=== PATIENT | male | born 1940 | race Caucasian/White ===

== ENCOUNTER 2017-07-13 09:27 | Day surgery (SDC) | payer MEDICARE, BC ==
[2017-07-13] MEDS ORDERED: Lactated Ringers 1,000 ML IV SCH (10:30)
[2017-07-13] MEDS ORDERED: fentaNYL 100 MCG/2 ML SDV ONE (11:52)
[2017-07-13] MEDS ORDERED: ceFAZolin 2 GM in Premix Bag 1 BAG IV ONE (12:00)
--- NOTE | 2017-07-16 08:34 | OR ---
DATE OF PROCEDURE: 07/13/2017 PREOPERATIVE DIAGNOSES: 1. Quadriplegia. 2. Parkinson's disease. 3. Inability to take in adequate fluid. POSTOPERATIVE DIAGNOSIS: 1. Quadriplegia. 2. Parkinson's disease. 3. Inability to take in adequate fluid. PROCEDURE: Percutaneous endoscopic gastrostomy placement. SURGEON: Federico Childress MD. ANESTHESIA: IV anesthesia with monitored anesthesia care. INDICATIONS: This 77-year-old white male has severe Parkinson's disease and quadriplegia. He had a feeding tube placed elsewhere, it came out a week ago. He seemed to be doing better, so we tried to see if we could leave it out; however, he has failed as far as being able to get enough fluids in, and a request were made for placement of a percutaneous endoscopic gastrostomy tube. I counseled his for this, and she gave her informed consent to proceed. DESCRIPTION OF PROCEDURE: The patient was placed supine in the operating room. IV anesthesia was administered by the Anesthesia Service. His abdomen was prepped and draped in the usual sterile fashion. Time-out was held. The flexible video Olympus upper endoscope was passed through his mouth, down his esophagus, and into his stomach. The stomach was insufflated. Lights were turned down in the operating room, and the endoscopic light transilluminated through the anterior abdominal wall just inferior to the prior gastrostomy site. Lidocaine 1% plain was infiltrated at this point, where the light transilluminated through the anterior abdominal wall. A percutaneous endoscopic gastrostomy kit manufactured by [employer] was obtained. The needle with the catheter were introduced into the abdomen, and with the endoscope, the catheter was visualized, the needle was removed. The wire was then passed through the catheter into the stomach and was grasped with biopsy forceps. The endoscope was then removed bringing the wire with it. A 24-Korean gastrostomy tube was then attached to the wire, and a 1 cm incision was made at the wire exit site in the anterior abdominal wall. The wire was then pulled up through the anterior abdominal wall bringing the catheter down through the patient's mouth, esophagus, and into the stomach. The gastroscope was reintroduced back into the stomach. The gastrostomy tube was noted to be seated nicely against the anterior gastric wall with no excess tension. The gastroscope was then removed. The face plate was attached to the gastrostomy tube and passed down to the skin. The shut-off valve and then the access port were attached to the tube. This was all after the tube was cut to an appropriate length. The face plate was then attached to the skin with interrupted stitches of 3-0 nylon. A sterile dressing was applied. He tolerated the procedure well and was brought from the operating room in fair condition. Federico Childress MD /[id number]
== END 2017-07-13 13:45 ==
LOC: JP.SDS 09:27
PROVIDERS: ATTEND Surgery
DX: G82.50 Quadriplegia, unspecified (principal); G20 Parkinson's disease
CPT/HCPCS: 43246; J0690; J3010; J7120

== ENCOUNTER 2018-05-10 07:12 | Day surgery (SDC) | payer MEDICARE, MEDICAID ==
[2018-05-10] MEDS ORDERED: Ciprofloxacin in D5W 400 MG in Premix Bag 1 BAG IV ONE ×2 (08:00)
[2018-05-10] MEDS: Dextrose 5%-Lactated Ringers 1,000 ML IV SCH ×2 (08:49→17:54)
[2018-05-10] MEDS ORDERED: Propofol 200 MG/20 ML SDV ONE (08:58)
[2018-05-10] MEDS ORDERED: Midazolam 1 MG/ML 2 ML SDV ONE (08:58)
[2018-05-10] MEDS ORDERED: fentaNYL 100 MCG/2 ML SDV ONE (08:58)
[2018-05-10] MEDS ORDERED: Lidocaine 1% with EPINEPHrine 1:100,000 50 ML MDV ONE (10:54)
[2018-05-10] MEDS ORDERED: Bupivacaine 0.5% 30 ML SDV ONE (10:54)
[2018-05-10] MEDS ORDERED: Acetaminophen 325 MG Tab PO PRN (14:12)
[2018-05-10] MEDS: Carbidopa/Levodopa 25-100 MG Tab PO SCH (16:32)
[2018-05-10] MEDS ORDERED: Carbidopa/Levodopa 25-100 MG Tab PO SCH (21:00)
[2018-05-10] MEDS ORDERED: Carbidopa/Levodopa 10-100 MG Tab PO SCH (21:00)
[2018-05-11] MEDS ORDERED: Ciprofloxacin in D5W 400 MG in Premix Bag 1 BAG IV SCH ×2
[2018-05-11] MEDS: Dextrose 5%-Lactated Ringers 1,000 ML IV SCH (05:15)
[2018-05-11] MEDS ORDERED: Aspirin 81 MG Tab.EC PO SCH (09:00)
[2018-05-11] MEDS ORDERED: Polyethylene Glycol 3350 Powder 17 GM Packet GTUBE SCH (09:00)
[2018-05-11] MEDS ORDERED: Carbidopa/Levodopa 50-200 MG Tab.ER PO SCH (09:00)
[2018-05-11] MEDS: Carbidopa/Levodopa 25-100 MG Tab PO SCH (09:57)
--- NOTE | 2018-05-17 09:17 | DISCH ---
FINAL DIAGNOSES: 1. Chronic indwelling urethral catheter associated with recurring urinary tract infections. 2. Status post gastrostomy. 3. Quadriplegia secondary to C5-C6 fracture. 4. Dementia. 5. Parkinson's disease. 6. History of constipation. OPERATIVE PROCEDURES: This was done on 05/10/2018: 1. Placement of suprapubic cystostomy with ultrasound guidance. 2. Replacement of gastrostomy tube. SUMMARY: This is a 77-year-old presenting with problems with recurrent UTIs with an indwelling Pérez catheter. He has very advanced neurologic disability due to the above diagnoses, and recommendation was made to place a suprapubic cystostomy tube, which should avoid problems with penile irritation as well as reduce the incidence of infections, and this was placed at the time of admission. He also had a previous gastrostomy tube in place, which was due to be replaced, and that was replaced the second time. Postoperatively, no major problems were noted. The patient will be transferred back to the [facility] today, essentially resuming all of the previous care. Other than that, his urinary drainage will be via the suprapubic tube. It is notable that he will likely continue to have some bladder spasms causing some passage of urine via the urethra and penis, so again that would be an expected finding. Followup with Dr. Garcia will be p.r.n. for replacing the G-tube and/or cystostomy tube as felt necessary.
--- NOTE | 2018-05-20 13:09 | OR ---
DATE OF PROCEDURE: 05/10/2018 PREOPERATIVE DIAGNOSES: 1. Status gastrostomy, due for gastrostomy tube change. 2. Chronic indwelling urethral catheter with recurrent urinary tract infections and excoriation of the penis. POSTOPERATIVE DIAGNOSES: 1. Status gastrostomy, due for gastrostomy tube change. 2. Chronic indwelling urethral catheter with recurrent urinary tract infections and excoriation of the penis. OPERATIVE PROCEDURES: 1. Replacement of gastrostomy tube (27393). 2. Placement of suprapubic cystostomy tube (13333). ANESTHESIA: Local plus IV sedation. DOG BARBER: LO Cherry. INDICATION FOR PROCEDURE: This is a 77-year-old with quadriplegia, advanced dementia, and Parkinson disease, who is being maintained with a gastrostomy tube for hydration and also has a Pérez catheter placed due to a neurogenic bladder. The gastrostomy tube at this point is beginning to breakdown, and it needs to be replaced. The patient has also had problems with recurrent urinary tract infections as well as some excoriation of the penis. There is a chronic indwelling urethral catheter. The patient will have a suprapubic catheter placed as well. Potential risks of the procedure were reviewed with the patient's , and he wishes to proceed. DETAILS OF PROCEDURE: The patient was taken to the operating room and placed in the supine position. IV sedation was administered. Initially, the previous gastrostomy tube was removed and a new 24-Tamazight gastrostomy tube was then placed, the balloon inflated, and the tube was sewn up against the abdominal wall and placed to dependent drainage. The lower abdomen was then prepped and draped. At this point, the previous urinary catheter was then injected with 400 mL of saline. One could then see the bladder expanding with ultrasound in the suprapubic area. Then, the skin and underlying soft tissues were anesthetized with 1% lidocaine mixed with Marcaine. Over the skin, a guidewire was then passed through a needle that had been placed into the bladder. A small incision around the wire was then made and the introducer and peel-away catheter were then placed, and then a 12- Tamazight suprapubic catheter then placed through the peel-away catheter, which was then removed. The cystoscopy tube was placed. This was inflated with 8 mL of saline to pull the stomach against the urinary bladder to facilitate hemostasis and sutured there with a 2-0 nylon stitch. The tube was then placed to dependent drain. Ultrasound confirmed adequate placement within the area of bladder. Previous Pérez catheter was then removed, and the patient was taken to the recovery room in satisfactory condition. Hany Garcia MD /[id number]
== END 2018-05-11 11:21 ==
LOC: UNDOADMIN 07:12 → JP.SDS 07:12 → JP.SDSSCHI 07:12 → EDSTATUS 09:00 → JP.MS 13:15 → JP.SDSSCHI 14:15 → UNDODISIN 05-11 11:20 → JP.SDS 05-11 11:21
PROVIDERS: ATTEND Surgery
DX: T83.511A Infection and inflammatory reaction due to indwelling urethral catheter, initial encounter (principal); N39.0 Urinary tract infection, site not specified; S30.812A Abrasion of penis, initial encounter; K94.23 Gastrostomy malfunction; S12.500S Unspecified displaced fracture of sixth cervical vertebra, sequela; S12.400S Unspecified displaced fracture of fifth cervical vertebra, sequela; G82.50 Quadriplegia, unspecified; G20 Parkinson's disease; F02.80 Dementia in other diseases classified elsewhere, unspecified severity, without behavioral disturbance, psychotic disturbance, mood disturbance, and anxiety; G47.33 Obstructive sleep apnea (adult) (pediatric); F32.9 Major depressive disorder, single episode, unspecified; Z79.82 Long term (current) use of aspirin; Z79.899 Other long term (current) drug therapy; W19.XXXS Unspecified fall, sequela
CPT/HCPCS: 43762; 51040; 76998; A9270; J0744; J2250; J2704; J3010; J3490; J7042

== ENCOUNTER 2018-08-27 18:23 | Emergency (ER) | payer MEDICAID, MEDICARE ==
--- NOTE | 2018-08-27 20:06 | EDM.PDOC ---
ED HPI GENERAL MEDICAL PROBLEM - General Chief Complaint: Genitourinary Problem Stated Complaint: CATHETAR PROBLEM Time Seen by Provider: 08/27/18 19:18 Source of Information: Reports: Patient, Family, RN Notes Reviewed History Limitations: Reports: No Limitations - History of Present Illness INITIAL COMMENTS - FREE TEXT/NARRATIVE: 78-year-old gentleman presents emergency department today with complications to his suprapubic catheter it will not flush does not produce urine - Related Data Allergies Allergy/AdvReac Type Severity Reaction Status Date / Time No Known Allergies Allergy Verified 08/27/18 18:34 Home Meds: Home Meds Acetaminophen 650 mg PO TID 07/13/17 [History] Aspirin [Adult Low Dose Aspirin EC] 81 mg PO DAILY 07/13/17 [History] Bisacodyl [Dulcolax] 10 mg RECTAL DAILY PRN 07/13/17 [History] Cholecalciferol (Vitamin D3) [Children's Vitamin D3] 1,000 unit PO DAILY [History] Magnesium Hydroxide [Milk of Magnesia Concentrated] 30 ml PO DAILY PRN 07/13/17 [History] Nystatin [Nystatin Crm] 15 gm TOP BID 07/13/17 [History] Polyethylene Glycol 3350 [MiraLAX] 17 gm PO DAILY PRN 07/13/17 [History] Ranitidine HCl [Zantac 75] 75 mg PO DAILY 07/13/17 [History] Carbidopa/Levodopa [Carbidopa-Levodopa 25-100 Tab] 1.5 tab PO BID 05/10/18 [ History] Carbidopa/Levodopa [Carbidopa-Levodopa 25-100] 1 tab PO BEDTIME 05/10/18 [ History] Past Medical History HEENT History: Reports: Impaired Vision, Macular Degeneration Respiratory History: Reports: Sleep Apnea Gastrointestinal History: Reports: None Genitourinary History: Reports: Other (See Below) Other Genitourinary History: supra pubic cath Musculoskeletal History: Reports: Back Pain, Chronic, Fracture, Osteoarthritis Neurological History: Reports: Head Trauma, Parkinson's Psychiatric History: Reports: Dementia - Infectious Disease History Infectious Disease History: Reports: Chicken Pox, Measles - Past Surgical History HEENT Surgical History: Reports: Tonsillectomy Respiratory Surgical History: Reports: None GI Surgical History: Reports: Appendectomy, Colonoscopy, EGD, Hernia, Inguinal Male Surgical History: Reports: None Neurological Surgical History: Reports: Other (See Below) Other Neurological Surgeries/Procedures: fractured neck; repaired with metal plate a couple years ago, according to Musculoskeletal Surgical History: Reports: Other (See Below) Other Musculoskeletal Surgeries/Procedures:: Achilles tendon repair shahrzad Social & Family History - Family History Family Medical History: Noncontributory - Tobacco Use Smoking Status *Q: Never Smoker - Caffeine Use Caffeine Use: Reports: None - Recreational Drug Use Recreational Drug Use: No ED ROS GENERAL - Review of Systems Review Of Systems: See Below Constitutional: Reports: No Symptoms : Reports: Urinary Retention ED EXAM, RENAL/ - Physical Exam Exam: See Below Text/Narrative:: On initial inspection after removing 10 mL the catheter was still talks and not easily removed it was noted that approximately 12 mL of fluid was present in the syringe, next continued to withdraw fluid from the balloon for total of 55 mL after complete deflation of the balloon the catheter was easily removed and replaced Exam Limited By: No Limitations General Appearance: Alert, No Apparent Distress Course - Vital Signs Last Recorded V/S: Last Vital Signs Temp 97.5 F 08/27/18 18:47 Pulse 56 L 08/27/18 18:47 Resp 14 08/27/18 18:47 BP 118/73 08/27/18 18:47 Pulse Ox 98 08/27/18 18:47 - Orders/Labs/Meds Orders: Active Orders 24 hr Category Date Time Status Bladder Scan [RC] ASDIRECTED Care 08/27/18 18:42 Active Departure - Departure Time of Disposition: 20:05 Disposition: DC/[facility] to [facility] Condition: Poor Clinical Impression: Urinary catheter complication Qualifiers: Encounter type: initial encounter Qualified Code(s): T83.9XXA - Unspecified complication of genitourinary prosthetic device, implant and graft, initial encounter - Discharge Information Referrals: Evan Bright MD [Primary Care Provider] - Additional Instructions: Follow-up with primary care as needed - My Orders Last 24 Hours: My Active Orders 08/27/18 18:42 Bladder Scan [RC] ASDIRECTED - Assessment/Plan Last 24 Hours: My Active Orders 08/27/18 18:42 Bladder Scan [RC] ASDIRECTED Plan: Assessment Acuity = acute Site and laterality = catheter complications suprapubic Etiology = secondary to over inflated balloon 55 mL Manifestations = urinary retention Location of injury = Home Lab values = none Plan Catheter was replaced discharge back to residential follow-up with primary care as needed This note was dictated using [employer] voice recognition software please call with any questions on syntax or grammar.
== END 2018-08-27 20:57 ==
LOC: JP.ED 18:23
DX: T83.9XXA Unspecified complication of genitourinary prosthetic device, implant and graft, initial encounter (principal); R33.8 Other retention of urine; Z79.82 Long term (current) use of aspirin; Z79.899 Other long term (current) drug therapy
CPT/HCPCS: 51703; 51798; 99282; 99284

== ENCOUNTER 2019-02-21 14:42 | Emergency (ER) | payer MEDICARE ==
[2019-02-21] MEDS ORDERED: Sodium Chloride 0.9% 10 ML Syringe FLUSH PRN (15:22)
--- NOTE | 2019-02-21 15:28 | EDM.PDOC ---
ED HPI GENERAL MEDICAL PROBLEM - General Chief Complaint: Genitourinary Problem Stated Complaint: TROUBLE WITH CATTHER Time Seen by Provider: 02/21/19 14:45 Source of Information: Reports: Family, Residential Records History Limitations: Reports: Altered Mental Status, Language Barrier, Physical Impairment - History of Present Illness INITIAL COMMENTS - FREE TEXT/NARRATIVE: Maximino is a 78 year old male, hx of dementia, Parkinson's, cervical spinal fracture resulting in quadriplegia who [facility] ED [facility] for evaluation of suprapubic catheter. Patient's catheter was replaced by staff this morning, they had no urine returned so flushed with sterile water, water came out of urinary meatus. Patient arrives here with blood at urinary meatus. Patient is non verbal and unable to provide any history. On review of records, Dr. Garcia, surgeon placed suprapubic in May secondary to frequent UTI's from indwelling Pérez catheter. Per jail staff, patient has not had any fever or chills. He also has a PEG tube. Onset: Today - Related Data Allergies Allergy/AdvReac Type Severity Reaction Status Date / Time No Known Allergies Allergy Verified 02/21/19 15:16 Home Meds: Home Meds Acetaminophen 650 mg PO TID 07/13/17 [History] Aspirin [Adult Low Dose Aspirin EC] 81 mg PO DAILY 07/13/17 [History] Bisacodyl [Dulcolax] 10 mg RECTAL DAILY PRN 07/13/17 [History] Cholecalciferol (Vitamin D3) [Children's Vitamin D3] 1,000 unit PO DAILY [History] Magnesium Hydroxide [Milk of Magnesia Concentrated] 30 ml PO DAILY PRN 07/13/17 [History] Nystatin [Nystatin Crm] 15 gm TOP BID 07/13/17 [History] Polyethylene Glycol 3350 [MiraLAX] 17 gm PO DAILY PRN 07/13/17 [History] Carbidopa/Levodopa [Carbidopa-Levodopa 25-100 Tab] 1.5 tab PO BID 05/10/18 [ History] Carbidopa/Levodopa [Carbidopa-Levodopa 25-100] 1 tab PO BEDTIME 05/10/18 [ History] Past Medical History HEENT History: Reports: Impaired Vision, Macular Degeneration Respiratory History: Reports: Sleep Apnea Gastrointestinal History: Reports: None, Chronic Constipation Genitourinary History: Reports: Other (See Below) Other Genitourinary History: supra pubic cath Musculoskeletal History: Reports: Back Pain, Chronic, Fracture, Osteoarthritis Neurological History: Reports: Head Trauma, Parkinson's Psychiatric History: Reports: Dementia - Infectious Disease History Infectious Disease History: Reports: Chicken Pox, Measles - Past Surgical History Head Surgeries/Procedures: Reports: None HEENT Surgical History: Reports: Tonsillectomy Respiratory Surgical History: Reports: None GI Surgical History: Reports: Appendectomy, Colonoscopy, EGD, Hernia, Inguinal Male Surgical History: Reports: None Neurological Surgical History: Reports: Other (See Below) Other Neurological Surgeries/Procedures: fractured neck; repaired with metal plate a couple years ago, according to Musculoskeletal Surgical History: Reports: Other (See Below) Other Musculoskeletal Surgeries/Procedures:: Achilles tendon repair shahrzad Social & Family History - Family History Family Medical History: Noncontributory - Caffeine Use Caffeine Use: Reports: None ED ROS GENERAL - Review of Systems Review Of Systems: ROS reveals no pertinent complaints other than HPI. ED EXAM, RENAL/ - Physical Exam Exam: See Below Exam Limited By: Other (Non verbal) Head: Atraumatic Respiratory/Chest: No Respiratory Distress Cardiovascular: Bradycardia GI/Abdominal: Soft, Other (PEG tube present in left abdomen, suprapubic catheter in place with no current signs of infection at site) (Male) Exam: Urethral Discharge (bloody discharge from urinary meatus) Neurological: Other (quadrapalegic with contracted upper extremities) Skin Exam: Warm Lymphatic: No Adenopathy Course - Vital Signs Last Recorded V/S: Last Vital Signs Temp 35.5 C 02/21/19 15:17 Pulse 54 L 02/21/19 16:13 Resp 17 02/21/19 15:17 BP 150/57 H 02/21/19 16:13 Pulse Ox 87 L 02/21/19 15:17 Maximino is a 78 year old male, presents to the ED today from jail for supra pubic catheter related complications. Please refer to HPI and focused exam. Patient non-verbal, on initial exam, no drainage from Suprapubic, sterile water flush does demonstrate water coming from penis followed by adalberto hematuria, suprapubic catheter balloon deflated, catheter pulled back, much more catheter was pulled back than anticipated. Balloon reinflated and then catheter was draining urine, steady ooze of blood from urinary meatus. Concern for urethral rupture vs. bladder injury. CT scan of abdomen and pelvis with no free fluid and suprapubic remained draining non bloody urine, discussed case with Dr. Tipton urologist at [facility] who thinks somehow when suprapubic catheter was placed this morning it migrated into the urethra and when balloon was inflated the urethra likely tore. He recommended an 18 montserratian Pérez cather to be placed and irrigated for tamponade and left in until Sunday when it can be removed, allowing time for urethra to heal. CBC and INR here today reassuring, patient not on blood thinners. 18 Polish catheter placed without difficulty, irrigated well, clots removed via irrigation and catheter capped. I discussed all of the above with patient's and jail staff with me updated by nursing staff here. Patient tolerated well and was discharged in stable condition. - Orders/Labs/Meds Orders: Active Orders 24 hr Category Date Time Status Peripheral IV Care [RC] . DIRECTED Care 02/21/19 15:22 Active Iopamidol [Isovue-300 (61%)] Med 02/21/19 15:45 Active 110 ml IV . DIRECTED Sodium Chloride 0.9% [Normal Saline] 1,000 ml Med 02/21/19 15:30 Active IV ASDIRECTED Sodium Chloride 0.9% [Saline Flush] Med 02/21/19 15:22 Active 10 ml FLUSH ASDIRECTED PRN Sodium Chloride 0.9% [Saline Flush] Med 02/21/19 15:34 Active 10 ml FLUSH ONETIME PRN Peripheral IV Insertion Adult [OM.PC] Routine Oth 02/21/19 15:22 Ordered Medication Orders Sodium Chloride (Normal Saline) 1,000 mls @ 150 mls/hr IV ASDIRECTED [facility] Last Admin: 02/21/19 16:12 Dose: 150 mls/hr Iopamidol (Isovue-300 (61%)) 110 ml IV . DIRECTED [facility] Last Admin: 02/21/19 16:16 Dose: 110 ml Sodium Chloride (Saline Flush) 10 ml FLUSH ASDIRECTED PRN PRN Reason: Keep Vein Open Sodium Chloride (Saline Flush) 10 ml FLUSH ONETIME PRN PRN Reason: PER RADIOLOGY PROTOCOL Last Admin: 02/21/19 16:19 Dose: 10 ml Admin: 10/18/19 15:37 Dose: 10 ml Labs: Laboratory Tests 02/21/19 02/21/19 02/21/19 Range/Units 15:21 15:37 15:37 WBC 9.0 (4.5-11.0) K/uL RBC 3.96 L (4.30-5.90) M/uL Hgb 13.6 (12.0-15.0) g/dL Hct 40.7 (40.0-54.0) % MCV 103 H (80-98) fL MCH 34 H (27-31) pg MCHC 33 (32-36) % Plt Count 262 (150-400) K/uL Neut % (Auto) 66 (36-66) % Lymph % (Auto) 21 L (24-44) % [place] % (Auto) 10 H (2-6) % Eos % (Auto) 3 (2-4) % Baso % (Auto) 0 (0-1) % PT 10.9 (9.5-12.0) sec INR 1.01 (0.80-1.20) Sodium 139 L (140-148) mmol/L Potassium 5.3 H (3.6-5.2) mmol/L Chloride 104 (100-108) mmol/L Carbon Dioxide 26 (21-32) mmol/L Anion Gap 14.3 H (5.0-14.0) mmol/L BUN 28 H (7-18) mg/dL Creatinine 0.7 L (0.8-1.3) mg/dL Est Cr Clr Drug Dosing 88.38 mL/min Estimated GFR (MDRD) > 60 (>60) Glucose 90 (74-106) mg/dL Calcium 8.7 (8.5-10.1) mg/dL Meds: Medications Generic Name Dose Route Start Last Admin Trade Name Freq PRN Reason Stop Dose Admin Sodium Chloride 1,000 mls @ 150 mls/hr 02/21/19 15:30 02/21/19 16:12 Normal Saline IV 150 mls/hr ASDIRECTED NATALY Administration Iopamidol 110 ml 02/21/19 15:45 02/21/19 16:16 Isovue-300 (61%) IV 110 ml . DIRECTED NATALY Administration Sodium Chloride 10 ml 02/21/19 15:22 Saline Flush FLUSH ASDIRECTED PRN Keep Vein Open Sodium Chloride 10 ml 02/21/19 15:34 02/21/19 16:19 Saline Flush FLUSH 10 ml ONETIME PRN Administration PER RADIOLOGY PROTOCOL Discontinued Medications Generic Name Dose Route Start Last Admin Trade Name Evelyne PRN Reason Stop Dose Admin Sodium Chloride 73 mls @ 3 mls/sec 02/21/19 15:34 02/21/19 16:17 Normal Saline IV 02/21/19 15:35 3 mls/sec ONETIME ONE Administration Departure - Departure Time of Disposition: 18:30 Disposition: DC/Tfer to [facility] 03 Condition: Good Clinical Impression: Tear of urethra Qualifiers: Encounter type: initial encounter Qualified Code(s): S37.33XA - Laceration of urethra, initial encounter - Discharge Information Referrals: Jose Martin Dillard MD [Primary Care Provider] - Forms: ED Department Discharge Additional Instructions: Keep Pérez Catheter in place until Sunday at which time it can be removed. Irrigate with sterile water/saline as needed if suprapubic is not draining. Urology felt that this should heal enough to remove the catheter on Sunday. The catheter in patient's penis is simply to tamponade off any bleeding from urethral tear, it is not needed for draining as long as suprapubic is functioning. When replacing suprapubic in the future, take caution as to not insert catheter too far to avoid any repeat urethral trauma. If there is any concerns or worsening symptoms over the weekend with regard to ongoing urethral bleeding despite catheter placement I would recommend transfer to a facility that has inpatient Urology such as [facility]. I spoke with a Dr. Givens there. - My Orders Last 24 Hours: My Active Orders 02/21/19 15:22 Peripheral IV Care [RC] . DIRECTED Sodium Chloride 0.9% [Saline Flush] 10 ml FLUSH ASDIRECTED PRN Peripheral IV Insertion Adult [OM.PC] Routine 02/21/19 15:30 Sodium Chloride 0.9% [Normal Saline] 1,000 ml IV ASDIRECTED 02/21/19 15:34 Sodium Chloride 0.9% [Saline Flush] 10 ml FLUSH ONETIME PRN 02/21/19 15:45 Iopamidol [Isovue-300 (61%)] 110 ml IV . DIRECTED - Assessment/Plan Last 24 Hours: My Active Orders 02/21/19 15:22 Peripheral IV Care [RC] . DIRECTED Sodium Chloride 0.9% [Saline Flush] 10 ml FLUSH ASDIRECTED PRN Peripheral IV Insertion Adult [OM.PC] Routine 02/21/19 15:30 Sodium Chloride 0.9% [Normal Saline] 1,000 ml IV ASDIRECTED 02/21/19 15:34 Sodium Chloride 0.9% [Saline Flush] 10 ml FLUSH ONETIME PRN 02/21/19 15:45 Iopamidol [Isovue-300 (61%)] 110 ml IV . DIRECTED
[2019-02-21] MEDS ORDERED: Sodium Chloride 0.9% 1,000 ML IV SCH (15:30)
[2019-02-21] MEDS: Sodium Chloride 0.9% 10 ML Syringe FLUSH PRN ×2 (15:37→16:19)
[2019-02-21] MEDS ORDERED: Iopamidol 612 MG/ML 150 ML Bottle IV SCH (15:45)
--- NOTE | 2019-02-21 17:01 | CRLCT ---
INDICATION: Suprapubic catheter replacement this morning with bleeding. TECHNIQUE: CT abdomen and pelvis acquired with IV contrast. 110 cc Isovue 300 COMPARISON: None FINDINGS: Lower chest: Unremarkable. Liver: Unremarkable. Spleen: Unremarkable. Pancreas: Unremarkable. Gallbladder and bile ducts: Unremarkable. Kidneys/urinary bladder: 3.6 centimeter x 3.4 centimeter cyst mid zone left kidney with thin septations. 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 No further workup necessary. 6 millimeter nonobstructing calculus in right renal pelvis. No hydronephrosis. Punctate nonobstructing calculus mid zone right kidney. A percutaneous suprapubic Pérez catheter balloon is identified within a collapsed urinary bladder. No evidence of perivascular fluid to definitively suggest perforation. No evidence for perivesicular hematoma. Adrenal glands: Unremarkable. GI tract: Diffuse colonic fecal retention. Appendix is normal. Vascular structures: Unremarkable. Lymph nodes: Unremarkable. Miscellaneous: Unremarkable. No free air or significant free fluid. Pelvic Organs: Degenerative changes involving both hip joints. Moderate to severe compression deformity L1 vertebral body. Multilevel degenerative changes involving the thoracolumbar spine. Bones: Unremarkable for age. IMPRESSION: Suprapubic catheter balloon within a decompressed urinary bladder. No evidence of good perivesicular fluid to definitively suggest perforation. Cystogram or CT cystogram recommended if clinically warranted to definitively evaluate for perforation. No evidence of perivesicular hematoma or hematoma within the ventral abdominal wall. 6 millimeter nonobstructing calculus right renal pelvis. No hydronephrosis. Punctate nonobstructing calculi mid zone right kidney. 3.6 centimeter x 3.4 centimeter cyst mid zone left kidney with thin septation. 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 Dictated by Yon Benito MD @ 02/21/2019 4:59:14 PM Please note that all CT scans at this facility use dose modulation, iterative reconstruction, and/or weight-based dosing when appropriate to reduce radiation dose to as low as reasonably achievable. Dictated by: Yon Benito MD @ 02/21/2019 16:59:31 (Electronically Signed)
== END 2019-02-21 18:38 ==
LOC: JP.ED 14:42
DX: S37.33XA Laceration of urethra, initial encounter (principal); G20 Parkinson's disease; Z79.82 Long term (current) use of aspirin; X58.XXXA Exposure to other specified factors, initial encounter
CPT/HCPCS: 36415; 51702; 74177; 80048; 85025; 85610; 96360; 96361; 99284; J7030

== ENCOUNTER 2019-03-02 22:23 | Emergency (ER) | payer MEDICARE ==
[2019-03-03] MEDS: Iopamidol 612 MG/ML 100 ML Bottle IV STA (00:19)
--- NOTE | 2019-03-03 00:27 | CRLCR ---
HISTORY: Generalized pain. COMPARISON: None available FINDINGS: A portable erect AP view of the chest was obtained at 23 47 hours. The lungs are clear despite shallow inspiration. No focal or diffuse infiltrates are present. The heart is mildly enlarged. The mediastinum is otherwise normal in appearance. There are changes of anterior and posterior inferior cervical fusion. The osseous structures elsewhere are normal in appearance for the patient`s age. IMPRESSION: Mild cardiomegaly. Otherwise no active disease seen in the chest. Dictated by Kalyan Reyes MD @ Mar 03 2019 12:23AM Signed by Dr. Kalyan Reyes @ Mar 03 2019 12:24AM
[2019-03-03] MEDS: cefTRIAXone 1 GM in Sodium Chloride 0.9% 50 ML IV ONE (00:46)
[2019-03-03] MEDS: Sodium Chloride 0.9% 1,000 ML IV STA (01:06)
--- NOTE | 2019-03-03 01:18 | CRLCT ---
INDICATION: Abdominal pain. End-stage Parkinson`s, very retracted. COMPARISON: 02/21/2019 TECHNIQUE: CT examination of the abdomen and pelvis was performed with the uneventful intravenous administration of 100 cc of Isovue-300 while 3 mm thick axial sections were obtained from the lung bases through the pubic symphysis. Oral contrast was not administered. Please note that all CT scans at this facility use dose modulation, iterative reconstruction, and/or weight-based dosing when appropriate to reduce radiation dose to as low as reasonably achievable. FINDINGS: In the abdomen, the liver, spleen, pancreas, and adrenals are normal in appearance. Again seen is the nonobstructive calculus in the right renal pelvis measuring 7 millimeters in diameter. Again seen is the tiny nonobstructing calculus in the upper pole of the right kidney. The septated cyst projecting medially from the interpolar left kidney measuring 3.3 centimeters in diameter is unchanged. The gallbladder is normal in appearance. The abdominal aorta is normal in caliber with no sign of dilatation. There is no sign of retroperitoneal mass or adenopathy. The stomach, loops of small bowel, and colon in the abdomen are normal in appearance. In the pelvis, the appendix is nonvisualized, but there is no sign of an inflammatory process in the area of the appendix. The loops of small bowel and colon in the pelvis are normal in appearance. The prostate remains mildly enlarged and is otherwise normal in appearance. Again seen is a suprapubic catheter in satisfactory position in the collapsed urinary bladder. There is no sign of pelvic or inguinal mass or adenopathy. There is mild atelectasis in the posterior lung bases, similar to the previous study. There is no change in the moderate T12 compression fracture. There is no change in the moderate left superior L2 endplate fracture. There is no change in minimal anterior subluxation of L4 on L5. There is no change in moderate L3-4 and L5-S1 disc degenerative disease. Again seen is moderate anterior angulation of the last sacral segment and the coccygeal segments, consistent with an old, healed distal sacral fracture. Again seen is mild scoliosis of the lumbar spine convex towards the left. IMPRESSION: Nothing seen that would explain the patient`s abdominal pain. CT of the abdomen shows no change in a nonobstructive 7 millimeter calculus in the left renal pelvis and a nonobstructive tiny calculus in the upper pole of the right kidney. No change in septated 3.3 centimeter cyst in the interpolar left kidney. CT of the pelvis shows no change in satisfactory positioning of a suprapubic catheter within the collapsed urinary bladder. Stable moderate T12 compression fracture and superior left L2 vertebral body endplate fracture. Please note that all CT scans at this facility use dose modulation, iterative reconstruction, and/or weight-based dosing when appropriate to reduce radiation dose to as low as reasonably achievable. Dictated by Kalyan Reyes MD @ Mar 03 2019 1:05AM Signed by Dr. Kalyan Reyes @ Mar 03 2019 1:16AM
--- NOTE | 2019-03-03 01:41 | EDM.PDOC ---
ED HPI GENERAL MEDICAL PROBLEM - General Chief Complaint: Genitourinary Problem Stated Complaint: BLEEDING Time Seen by Provider: 03/03/19 01:36 Source of Information: Reports: Patient History Limitations: Reports: Altered Mental Status, Other - History of Present Illness INITIAL COMMENTS - FREE TEXT/NARRATIVE: + 78 years old male patient presented with a chief complaint of bleeding from suprapubic catheter and tip of his penis. He was noted today. History collected halfway, from his at the bedside. stated that he had injury to his urethra few days ago Sunday where placing his catheter. No report of any nausea or vomiting or fever. EMS did not notice any blood and his urine looks clear in a back. Also no bleeding was noted here in the ER urine is very clear. Patient denies any headache or visual changes. Denies any neck pain or back pain. Denies any chest pain or shortness breath. Denies any cough or fever. Denies any abdominal pain diarrhea or constipation. No urinary symptom. His stated that he seems to be at his baseline. - Related Data Allergies Allergy/AdvReac Type Severity Reaction Status Date / Time No Known Allergies Allergy Verified 03/02/19 22:41 Home Meds: Home Meds Acetaminophen 650 mg PO TID 07/13/17 [History] Aspirin [Adult Low Dose Aspirin EC] 81 mg PO DAILY 07/13/17 [History] Bisacodyl [Dulcolax] 10 mg RECTAL DAILY PRN 07/13/17 [History] Cholecalciferol (Vitamin D3) [Children's Vitamin D3] 1,000 unit PO DAILY [History] Magnesium Hydroxide [Milk of Magnesia Concentrated] 30 ml PO DAILY PRN 07/13/17 [History] Nystatin [Nystatin Crm] 15 gm TOP BID 07/13/17 [History] Polyethylene Glycol 3350 [MiraLAX] 17 gm PO DAILY PRN 07/13/17 [History] Carbidopa/Levodopa [Carbidopa-Levodopa 25-100 Tab] 1.5 tab PO BID 05/10/18 [ History] Carbidopa/Levodopa [Carbidopa-Levodopa 25-100] 1 tab PO BEDTIME 05/10/18 [ History] Ranitidine [Zantac] 1 tab PO DAILY 03/02/19 [History] Past Medical History HEENT History: Reports: Impaired Vision, Macular Degeneration Respiratory History: Reports: Sleep Apnea Gastrointestinal History: Reports: None, Chronic Constipation Genitourinary History: Reports: Other (See Below) Other Genitourinary History: supra pubic cath Musculoskeletal History: Reports: Back Pain, Chronic, Fracture, Osteoarthritis Neurological History: Reports: Head Trauma, Parkinson's Psychiatric History: Reports: Dementia - Infectious Disease History Infectious Disease History: Reports: Chicken Pox, Measles - Past Surgical History Head Surgeries/Procedures: Reports: None HEENT Surgical History: Reports: Tonsillectomy Respiratory Surgical History: Reports: None GI Surgical History: Reports: Appendectomy, Colonoscopy, EGD, Hernia, Inguinal Male Surgical History: Reports: None, Suprapubic Catheter Placement Neurological Surgical History: Reports: Other (See Below) Other Neurological Surgeries/Procedures: fractured neck; repaired with metal plate a couple years ago, according to Musculoskeletal Surgical History: Reports: Other (See Below) Other Musculoskeletal Surgeries/Procedures:: Achilles tendon repair shahrzad Social & Family History - Family History Family Medical History: Noncontributory - Tobacco Use Smoking Status *Q: Never Smoker - Caffeine Use Caffeine Use: Reports: Soda - Recreational Drug Use Recreational Drug Use: No ED ROS GENERAL - Review of Systems Review Of Systems: ROS reveals no pertinent complaints other than HPI. ED EXAM, RENAL/ - Physical Exam Exam: See Below Exam Limited By: Other (Baseline dementia) General Appearance: No Apparent Distress Ears: Normal External Exam, Normal Canal, Hearing Grossly Normal, Normal TMs Nose: Normal Inspection, Normal Mucosa, No Blood Throat/Mouth: Normal Inspection, Normal Lips, Normal Teeth, Normal Gums, Normal Oropharynx, Normal Voice, No Airway Compromise Head: Atraumatic, Normocephalic Neck: Normal Inspection, Supple, Non-Tender, Full Range of Motion Respiratory/Chest: No Respiratory Distress, Lungs Clear, Normal Breath Sounds, No Accessory Muscle Use, Chest Non-Tender Cardiovascular: Normal Peripheral Pulses, Regular Rate, Rhythm, No Edema, No Gallop, No JVD, No Murmur, No Rub GI/Abdominal: Normal Bowel Sounds, Soft, Non-Tender, No Organomegaly, No Distention, No Abnormal Bruit, No Mass, Other (Suprapubic catheter in place. No bleeding or leakage around the catheter. No bright red bleeding at the tip of the penis. Clear urine and the back.) Neurological: Alert, Other (Quadriplegic) Course - Vital Signs Last Recorded V/S: Last Vital Signs Temp 36.5 C 03/02/19 23:19 Pulse 50 L 03/02/19 23:19 Resp 24 H 03/02/19 23:19 BP 149/75 H 03/02/19 23:19 Pulse Ox 100 03/02/19 23:19 - Orders/Labs/Meds Orders: Active Orders 24 hr Category Date Time Status EKG Documentation Completion [RC] ASDIRECTED Care 03/02/19 23:04 Active Sodium Chloride 0.9% [Normal Saline] 1,000 ml Med 03/03/19 01:06 Active IV .BOLUS EKG 12 Lead [EK] Urgent Ther 03/02/19 23:03 Ordered Medication Orders Sodium Chloride (Normal Saline) 1,000 mls @ 999 mls/hr IV .BOLUS STA Stop: 03/03/19 02:06 Labs: Laboratory Tests 03/02/19 03/02/19 03/02/19 Range/Units 22:50 23:03 23:03 WBC 8.6 (4.5-11.0) K/uL RBC 3.79 L (4.30-5.90) M/uL Hgb 12.9 (12.0-15.0) g/dL Hct 38.1 L (40.0-54.0) % MCV 101 H (80-98) fL MCH 34 H (27-31) pg MCHC 34 (32-36) % Plt Count 248 (150-400) K/uL Neut % (Auto) 61 (36-66) % Lymph % (Auto) 24 (24-44) % Charlotte % (Auto) 10 H (2-6) % Eos % (Auto) 4 (2-4) % Baso % (Auto) 1 (0-1) % PT 10.7 (9.5-12.0) sec INR 0.99 (0.80-1.20) Sodium 136 L (140-148) mmol/L Potassium 5.0 (3.6-5.2) mmol/L Chloride 103 (100-108) mmol/L Carbon Dioxide 21 (21-32) mmol/L Anion Gap 17.0 H (5.0-14.0) mmol/L BUN 23 H (7-18) mg/dL Creatinine 0.7 L (0.8-1.3) mg/dL Est Cr Clr Drug Dosing 97.00 mL/min Estimated GFR (MDRD) > 60 (>60) Glucose 86 (74-106) mg/dL Lactic Acid (0.4-2.0) mmol/L Calcium 9.1 (8.5-10.1) mg/dL Total Bilirubin 0.6 (0.2-1.0) mg/dL AST 34 (15-37) U/L ALT 10 L (12-78) U/L Alkaline Phosphatase 76 (46-116) U/L Troponin I < 0.017 (0.000-0.056) ng/mL C-Reactive Protein 0.40 H (0.0-0.3) mg/dL Total Protein 7.6 (6.4-8.2) g/dL Albumin 3.5 (3.4-5.0) g/dL Globulin 4.1 H (2.3-3.5) g/dL Albumin/Globulin Ratio 0.9 L (1.2-2.2) Lipase 128 (73-393) U/L Urine Color (YELLOW) Urine Appearance (CLEAR) Urine pH (5.0-8.0) Ur Specific [place] (1.008-1.030) Urine Protein (NEGATIVE) mg/dL Urine Glucose (UA) (NEGATIVE) mg/dL Urine Ketones (NEGATIVE) mg/dL Urine Occult Blood (NEGATIVE) Urine Nitrite (NEGATIVE) Urine Bilirubin (NEGATIVE) Urine Urobilinogen (0.2-1.0) EU/dL Ur Leukocyte Esterase (NEGATIVE) Urine RBC (0-5) Urine WBC (0-5) Ur Epithelial Cells Amorphous Sediment Urine Bacteria Urine Mucus 03/02/19 03/02/19 Range/Units 23:03 23:39 WBC (4.5-11.0) K/uL RBC (4.30-5.90) M/uL Hgb (12.0-15.0) g/dL Hct (40.0-54.0) % MCV (80-98) fL MCH (27-31) pg MCHC (32-36) % Plt Count (150-400) K/uL Neut % (Auto) (36-66) % Lymph % (Auto) (24-44) % Charlotte % (Auto) (2-6) % Eos % (Auto) (2-4) % Baso % (Auto) (0-1) % PT (9.5-12.0) sec INR (0.80-1.20) Sodium (140-148) mmol/L Potassium (3.6-5.2) mmol/L Chloride (100-108) mmol/L Carbon Dioxide (21-32) mmol/L Anion Gap (5.0-14.0) mmol/L BUN (7-18) mg/dL Creatinine (0.8-1.3) mg/dL Est Cr Clr Drug Dosing mL/min Estimated GFR (MDRD) (>60) Glucose (74-106) mg/dL Lactic Acid 1.6 (0.4-2.0) mmol/L Calcium (8.5-10.1) mg/dL Total Bilirubin (0.2-1.0) mg/dL AST (15-37) U/L ALT (12-78) U/L Alkaline Phosphatase (46-116) U/L Troponin I (0.000-0.056) ng/mL C-Reactive Protein (0.0-0.3) mg/dL Total Protein (6.4-8.2) g/dL Albumin (3.4-5.0) g/dL Globulin (2.3-3.5) g/dL Albumin/Globulin Ratio (1.2-2.2) Lipase (73-393) U/L Urine Color Yellow (YELLOW) Urine Appearance Slightly cloudy A (CLEAR) Urine pH 8.5 H (5.0-8.0) Ur Specific [place] 1.020 (1.008-1.030) Urine Protein Negative (NEGATIVE) mg/dL Urine Glucose (UA) Negative (NEGATIVE) mg/dL Urine Ketones Negative (NEGATIVE) mg/dL Urine Occult Blood Moderate H (NEGATIVE) Urine Nitrite Positive H (NEGATIVE) Urine Bilirubin Negative (NEGATIVE) Urine Urobilinogen 0.2 (0.2-1.0) EU/dL Ur Leukocyte Esterase Large H (NEGATIVE) Urine RBC 0-5 (0-5) Urine WBC 5-10 H (0-5) Ur Epithelial Cells Few Amorphous Sediment Urine Bacteria Moderate Urine Mucus Not seen Meds: Medications Generic Name Dose Route Start Last Admin Trade Name Freq PRN Reason Stop Dose Admin Sodium Chloride 1,000 mls @ 999 mls/hr 03/03/19 01:06 Normal Saline IV 03/03/19 02:06 .BOLUS STA Discontinued Medications Generic Name Dose Route Start Last Admin Trade Name Evelyne PRN Reason Stop Dose Admin Sodium Chloride 76 mls @ 3.2 mls/sec 03/03/19 00:06 03/03/19 00:19 Normal Saline IV 03/03/19 00:07 3.2 mls/sec ASDIRECTED STA Administration Ceftriaxone Sodium 1 gm/ 50 mls @ 100 mls/hr 03/03/19 00:38 03/03/19 00:46 Sodium Chloride IV 03/03/19 01:07 100 mls/hr ONETIME ONE Administration Iopamidol 100 ml 03/03/19 00:05 03/03/19 00:19 Isovue-300 (61%) IV 03/03/19 00:06 100 ml . DIRECTED STA Administration - Radiology Interpretation Free Text/Narrative:: Patient was seen and examined shortly after arrival. Stable. Patient occasionally acts like he is in pain and cannot really tell me where. His said that she is not sure if he is really in pain or not and sometime this could be from his arms. I did order CT his head and the refused she said he is at his normal baseline regarding his cognition and no history of trauma or injury and he refused hit CT. But she had a CT abdomen and pelvis which came back shows no acute abnormalities. Lab and imaging reviewed with the patient and his at the bedside. Urine shows some sign of UTI. Sent for culture. Given 1 g IV Rocephin and also 500 mL normal saline bolus. Also started on Keflex. Advised to rest, stay well-hydrated. Close follow-up with PCP. Come back for any worsening symptom or concern. Patient his agrees with the plan. Stable for discharge. Departure - Departure Time of Disposition: 01:45 Disposition: DC/Tfer to SNF 03 Condition: Good Clinical Impression: UTI (urinary tract infection), UTI, Urinary tract infectious disease Tear of urethra Qualifiers: Encounter type: initial encounter Qualified Code(s): S37.33XA - Laceration of urethra, initial encounter - Discharge Information *PRESCRIPTION DRUG MONITORING PROGRAM REVIEWED*: Not Applicable *COPY OF PRESCRIPTION DRUG MONITORING REPORT IN PATIENT HOLLY: Not Applicable Referrals: PCP,None [Primary Care Provider] - Additional Instructions: Follow-up with PCP in 2 days Come back if symptom worsen - My Orders Last 24 Hours: My Active Orders 03/02/19 23:03 EKG 12 Lead [EK] Urgent 03/02/19 23:04 EKG Documentation Completion [RC] ASDIRECTED 03/03/19 01:06 Sodium Chloride 0.9% [Normal Saline] 1,000 ml IV .BOLUS - Assessment/Plan Last 24 Hours: My Active Orders 03/02/19 23:03 EKG 12 Lead [EK] Urgent 03/02/19 23:04 EKG Documentation Completion [RC] ASDIRECTED 03/03/19 01:06 Sodium Chloride 0.9% [Normal Saline] 1,000 ml IV .BOLUS Plan: Advised to rest, stay well-hydrated. Close follow-up with PCP in 2 days. Come back for any worsening symptom or concern.
== END 2019-03-03 02:53 ==
LOC: JP.ED 22:23
DX: S37.33XA Laceration of urethra, initial encounter (principal); N39.0 Urinary tract infection, site not specified; Z79.82 Long term (current) use of aspirin; X58.XXXA Exposure to other specified factors, initial encounter
CPT/HCPCS: 36415; 71045; 74177; 80053; 81001; 83605; 83690; 84484; 85025; 85610; 86140; 93005; 96361; 96365; 99284; J0696; J7030; J7050; Q9967; 93010

== ENCOUNTER 2019-03-12 21:10 | Emergency (ER) | payer MEDICARE ==
[2019-03-12] MEDS ORDERED: Lidocaine 2% Jelly 10 ML Urojet MUCMEM ONE (21:49)
--- NOTE | 2019-03-12 21:58 | EDM.PDOC ---
ED HPI GENERAL MEDICAL PROBLEM - General Chief Complaint: Genitourinary Problem Stated Complaint: MEDICAL VIA MEDI-VAN Time Seen by Provider: 03/12/19 21:40 Source of Information: Reports: Family, Old Records, RN History Limitations: Reports: Other (patient has dementia) - History of Present Illness INITIAL COMMENTS - FREE TEXT/NARRATIVE: 78 yo male [facility] accompanied by his . He has had adalberto blood from his penis all day today. He has an appt to see urology in [place] tomorrow. He has a suprapubic catheter in chronically. The urine from the suprapubic catheter is also showing quite a bit of blood. He is only on ASA for a blood thinner. He had a similar problem a couple weeks ago and it was recommended that a #18 g martin catheter be placed to tamponade the presumed bleeding urethral site. This catheter was removed after 2-3 days. Onset: Today (resumed bleeding today) Onset Date: 03/12/19 Duration: Hour(s): (most of the day today.), Constant Location: Reports: Pelvis (urethral) Quality: Reports: Other (it is not clear if he is experiencing pain due to his dementia.) Severity: Moderate Improves with: Reports: None Worsens with: Reports: Other (? time) Context: Reports: Other (See HPI) Associated Symptoms: Reports: No Other Symptoms Treatments [employer] PET[employer] AND PET [employer]PPLIES: Reports: Other (see below) (none today, had a martin placed for this in the past with apparent short term benefit.) - Related Data Allergies Allergy/AdvReac Type Severity Reaction Status Date / Time No Known Allergies Allergy Verified 03/02/19 22:41 Home Meds: Home Meds Acetaminophen 650 mg PO TID 07/13/17 [History] Aspirin [Adult Low Dose Aspirin EC] 81 mg PO DAILY 07/13/17 [History] Bisacodyl [Dulcolax] 10 mg RECTAL DAILY PRN 07/13/17 [History] Cholecalciferol (Vitamin D3) [Children's Vitamin D3] 1,000 unit PO DAILY [History] Magnesium Hydroxide [Milk of Magnesia Concentrated] 30 ml PO DAILY PRN 07/13/17 [History] Nystatin [Nystatin Crm] 15 gm TOP BID 07/13/17 [History] Polyethylene Glycol 3350 [MiraLAX] 17 gm PO DAILY PRN 07/13/17 [History] Carbidopa/Levodopa [Carbidopa-Levodopa 25-100 Tab] 1.5 tab PO BID 05/10/18 [ History] Carbidopa/Levodopa [Carbidopa-Levodopa 25-100] 1 tab PO BEDTIME 05/10/18 [ History] Ranitidine [Zantac] 1 tab PO DAILY 03/02/19 [History] Famotidine 20 mg PO DAILY 03/12/19 [History] Past Medical History HEENT History: Reports: Impaired Vision, Macular Degeneration Respiratory History: Reports: Sleep Apnea Gastrointestinal History: Reports: None, Chronic Constipation Genitourinary History: Reports: Other (See Below) Other Genitourinary History: supra pubic cath Musculoskeletal History: Reports: Back Pain, Chronic, Fracture, Osteoarthritis Neurological History: Reports: Head Trauma, Parkinson's Psychiatric History: Reports: Dementia - Infectious Disease History Infectious Disease History: Reports: Chicken Pox, Measles - Past Surgical History Head Surgeries/Procedures: Reports: None HEENT Surgical History: Reports: Tonsillectomy Respiratory Surgical History: Reports: None GI Surgical History: Reports: Appendectomy, Colonoscopy, EGD, Hernia, Inguinal Male Surgical History: Reports: None, Suprapubic Catheter Placement Neurological Surgical History: Reports: Other (See Below) Other Neurological Surgeries/Procedures: fractured neck; repaired with metal plate a couple years ago, according to Musculoskeletal Surgical History: Reports: Other (See Below) Other Musculoskeletal Surgeries/Procedures:: Achilles tendon repair shahrzad Social & Family History - Family History Family Medical History: Noncontributory - Tobacco Use Smoking Status *Q: Never Smoker - Caffeine Use Caffeine Use: Reports: Soda - Recreational Drug Use Recreational Drug Use: No ED ROS GENERAL - Review of Systems Review Of Systems: See Below Constitutional: Reports: No Symptoms : Reports: Hematuria (via suprapubic), Other (adalberto blood from urethra) Skin: Reports: No Symptoms ED EXAM, RENAL/ - Physical Exam Exam: See Below Exam Limited By: Other (dementia) General Appearance: Alert, WD/WN, No Apparent Distress Eye Exam: Bilateral Eye: Normal Inspection Ears: Normal External Exam, Normal Canal, Hearing Grossly Normal Nose: Normal Inspection, No Blood Throat/Mouth: Normal Inspection Respiratory/Chest: No Respiratory Distress, Lungs Clear, Normal Breath Sounds, No Accessory Muscle Use Cardiovascular: Regular Rate, Rhythm, No Edema GI/Abdominal: Normal Bowel Sounds (Male) Exam: Circumcised, Urethral Discharge (gross blood) Extremities: Normal Inspection, Normal Range of Motion, Non-Tender, No Pedal Edema Neurological: Alert, CN II-XII Intact, No Motor/Sensory Deficits Psychiatric: Normal Affect, Normal Mood Skin Exam: Warm, Dry, Intact, Normal Color, No Rash Course - Vital Signs Text/Narrative:: Bleeding not stopped, but definitely slowed after catheter placement. Last Recorded V/S: Last Vital Signs Temp 36.6 C 03/12/19 21:47 Pulse 55 L 03/12/19 22:06 Resp 12 03/12/19 21:47 BP 106/58 L 03/12/19 22:06 Pulse Ox 99 03/12/19 22:06 - Orders/Labs/Meds Orders: Active Orders 24 hr Category Date Time Status Martin Catheter Insertion [Insert Urinary Catheter] [OM. Care 03/12/19 22:00 Ordered PC] Q24H Urinary Catheter Assessment [RC] ASDIRECTED Care 03/12/19 21:49 Active CULTURE URINE [RM] Stat Lab 03/12/19 22:12 Received Labs: Laboratory Tests 03/12/19 Range/Units 21:56 WBC 7.0 (4.5-11.0) K/uL RBC 3.59 L (4.30-5.90) M/uL Hgb 11.8 L (12.0-15.0) g/dL Hct 36.8 L (40.0-54.0) % MCV 103 H (80-98) fL MCH 33 H (27-31) pg MCHC 32 (32-36) % Plt Count 279 (150-400) K/uL Meds: Medications Discontinued Medications Generic Name Dose Route Start Last Admin Trade Name Freq PRN Reason Stop Dose Admin Lidocaine HCl 10 ml 03/12/19 21:49 03/12/19 22:29 Xylocaine 2% Jelly MUCMEM 03/12/19 21:50 10 ml ONETIME ONE Administration Departure - Departure Time of Disposition: 23:00 Disposition: Home, Self-Care 01 Condition: Fair Clinical Impression: Urethral bleeding - Discharge Information *PRESCRIPTION DRUG MONITORING PROGRAM REVIEWED*: No *COPY OF PRESCRIPTION DRUG MONITORING REPORT IN PATIENT HOLLY: No (Keep your appt to see urology for tomorrow. Leave both catheters in place in the interim.) Referrals: Jose Martin Dillard MD [Primary Care Provider] - Forms: ED Department Discharge Additional Instructions: Leave both catheters in place tonight. Keep the appt with urology for tomorrow. - My Orders Last 24 Hours: My Active Orders 03/12/19 21:49 Urinary Catheter Assessment [RC] ASDIRECTED 03/12/19 22:00 Martin Catheter Insertion [Insert Urinary Catheter] [OM.PC] Q24H 03/12/19 22:12 CULTURE URINE [RM] Stat - Assessment/Plan Last 24 Hours: My Active Orders 03/12/19 21:49 Urinary Catheter Assessment [RC] ASDIRECTED 03/12/19 22:00 Martin Catheter Insertion [Insert Urinary Catheter] [OM.PC] Q24H 03/12/19 22:12 CULTURE URINE [RM] Stat
== END 2019-03-13 00:36 | disposition home or self-care (01) ==
LOC: JP.ED 21:10
DX: N36.8 Other specified disorders of urethra (principal); G20 Parkinson's disease; Z79.899 Other long term (current) drug therapy; Z79.82 Long term (current) use of aspirin
CPT/HCPCS: 36415; 51702; 85027; 87086; 87088; 87186; 99283; 99283-25

== ENCOUNTER 2019-04-24 09:10 | Day surgery (SDC) | payer BC, MEDICAID, MEDICARE ==
[~2019-04-24 09:10] MED LIST: Midazolam 1 MG/ML 2 ML SDV ONE; Propofol 200 MG/20 ML SDV ONE; fentaNYL 100 MCG/2 ML SDV ONE
[2019-04-24] MEDS ORDERED: Dextrose 5%-Lactated Ringers 1,000 ML IV SCH (10:00)
[2019-04-24] MEDS ORDERED: Lactated Ringers 1,000 ML IV ONE (10:30)
--- NOTE | 2019-04-28 11:27 | OR ---
DATE OF PROCEDURE: 04/24/2019 SURGEON: Hany Garcia MD PREOPERATIVE DIAGNOSIS: Dislodged gastrostomy tube. POSTOPERATIVE DIAGNOSIS: Dislodged gastrostomy tube. OPERATIVE PROCEDURE: Percutaneous endoscopic gastrostomy tube placement (23538). ANESTHESIA: IV sedation. INDICATIONS FOR PROCEDURE: This is a 78-year-old resident of [facility], who is being maintained with gastrostomy tube feedings. Two days ago, the tube became dislodged and on presentation to clinic yesterday, the gastrostomy site was too tight to place an adequately sized tube. Given this, we thought we have to come to the operating room today for a percutaneous endoscopic gastrostomy tube placement. Potential risks of the procedure were reviewed with patient's , and she wishes to proceed. DETAILS OF PROCEDURE: The patient was taken to the operating room and placed in a semi- sitting position. The previous gastrostomy site was then prepped and draped. Through the previous gastrostomy site, a guidewire was then passed from there and into the stomach. The upper GI endoscope was then passed orally into the stomach where the guidewire was identified, grasped, and then pulled back out through the mouth. This was attached to the gastrostomy tube insertion complex, and the gastrostomy tube was then pulled down through the mouth and taken out through that pre-existing opening, where it was affixed in position and a dressing applied. There were no overt complications. This tube will likely last up to a year. If it lasts up to a year, it should probably be changed at that time or sooner if needed. The first change should be done by Dr. Garcia in [facility], given this is not a balloon catheter type tube. Hany Garcia MD /[id number]
== END 2019-04-24 13:22 | disposition home or self-care (01) ==
LOC: JP.SDS 09:10
PROVIDERS: ATTEND Surgery
DX: T85.528A Displacement of other gastrointestinal prosthetic devices, implants and grafts, initial encounter (principal); G20 Parkinson's disease; F02.80 Dementia in other diseases classified elsewhere, unspecified severity, without behavioral disturbance, psychotic disturbance, mood disturbance, and anxiety
CPT/HCPCS: 43246; J2250; J2704; J3010

== ENCOUNTER 2019-06-27 19:40 | Emergency (ER) | payer MEDICARE ==
--- NOTE | 2019-06-27 20:03 | EDM.PDOC ---
ED HPI GENERAL MEDICAL PROBLEM - General Chief Complaint: Gastrointestinal Problem Stated Complaint: g-tube Time Seen by Provider: 06/27/19 19:40 Source of Information: Reports: Skilled Nursing Records, RN History Limitations: Reports: No Limitations (Patient himself is noncommunicative but history is obtained from the halfway staff) - History of Present Illness INITIAL COMMENTS - FREE TEXT/NARRATIVE: 79-year-old male with a chronic G-tube for the past several years, accidentally pulled the G-tube out. He was sent into the emergency room to have it replaced. Unfortunately the G-tube that he has in place is unavailable at this time, but it can be replaced by a 14-gauge Pérez. Onset: Sudden Duration: Hour(s): (2 hours ago) Associated Symptoms: Denies: Nausea/Vomiting - Related Data Allergies Allergy/AdvReac Type Severity Reaction Status Date / Time No Known Allergies Allergy Verified 06/27/19 20:18 Home Meds: Home Meds Acetaminophen 650 mg PO Q4H PRN 07/13/17 [History] Aspirin [Adult Low Dose Aspirin EC] 81 mg PO DAILY 07/13/17 [History] Cholecalciferol (Vitamin D3) [Children's Vitamin D3] 1,000 units PO DAILY [History] Magnesium Hydroxide [Milk of Magnesia Concentrated] 30 ml PO DAILY PRN 07/13/17 [History] polyethylene glycoL 3350 [MiraLAX] 17 gm PO DAILY PRN 07/13/17 [History] Carbidopa/Levodopa [Carbidopa-Levodopa 25-100 Tab] 12.5 mg PO BEDTIME 05/10/18 [ History] Carbidopa/Levodopa [Carbidopa-Levodopa 25-100] 25 mg PO ASDIRECTED 05/10/18 [ History] Ferrous Sulfate 325 mg PO BID 04/23/19 [History] bisacodyL [Dulcolax] 10 mg RC DAILY PRN 04/23/19 [History] polyethylene glycoL 3350 [MiraLAX] 17 gm PO BID 04/23/19 [History] Ranitidine HCl 150 mg PO BID 06/27/19 [History] Past Medical History HEENT History: Reports: Impaired Vision, Macular Degeneration Respiratory History: Reports: Sleep Apnea Gastrointestinal History: Reports: Chronic Constipation, Other (See Below) Other Gastrointestinal History: has g-tube that is being replaced Genitourinary History: Reports: Other (See Below) Other Genitourinary History: supra pubic cath Musculoskeletal History: Reports: Back Pain, Chronic, Fracture, Osteoarthritis Neurological History: Reports: Head Trauma, Parkinson's Psychiatric History: Reports: Dementia - Infectious Disease History Infectious Disease History: Reports: Chicken Pox, Measles - Past Surgical History Head Surgeries/Procedures: Reports: None HEENT Surgical History: Reports: Tonsillectomy Respiratory Surgical History: Reports: None GI Surgical History: Reports: Appendectomy, Colonoscopy, EGD, Hernia, Inguinal Male Surgical History: Reports: None, Suprapubic Catheter Placement Neurological Surgical History: Reports: Other (See Below) Other Neurological Surgeries/Procedures: fractured neck; repaired with metal plate a couple years ago, according to Musculoskeletal Surgical History: Reports: Other (See Below) Other Musculoskeletal Surgeries/Procedures:: Achilles tendon repair shahrzad Social & Family History - Family History Family Medical History: Noncontributory - Caffeine Use Caffeine Use: Reports: Soda ED ROS GENERAL - Review of Systems Review Of Systems: Unable To Obtain Reason Not Obtained: Patient is noncommunicative, he is at his baseline Constitutional: Denies: Fever Respiratory: Denies: Shortness of Breath GI/Abdominal: Denies: Vomiting ED EXAM, GI/ABD - Physical Exam Exam: See Below Exam Limited By: No Limitations General Appearance: Alert, No Apparent Distress Respiratory/Chest: No Respiratory Distress GI/Abdominal Exam: Other (No abdominal distention) Extremities: Other (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 Dr. Garcia will recheck the patient tomorrow morning at 830 to 9:00 to replace his more permanent G-tube. Departure - Departure Time of Disposition: 20:15 Disposition: DC/Tfer to [facility] Clinical Impression: Malfunction of gastrostomy tube - Discharge Information Instructions: Gastrostomy Tube Replacement Referrals: PCP,None [Primary Care Provider] - Forms: ED Department Discharge Care Plan Goals: Give fluids, medicines or other necessary materials through the Pérez if needed. Return to the emergency room tomorrow morning at 8:30 AM for surgical consultation to replace Pérez with a more permanent G-tube. Sepsis Event Note - Focused Exam Vital Signs: Vital Signs Temp Pulse Resp BP Pulse Ox 06/27/19 19:56 95.9 F L 51 L 14 113/56 L 93 L Date Exam was Performed: 06/27/19 Time Exam was Performed: 20:34
== END 2019-06-27 20:15 ==
LOC: JP.ED 19:40
DX: K94.23 Gastrostomy malfunction (principal); Z79.899 Other long term (current) drug therapy; Z79.82 Long term (current) use of aspirin
CPT/HCPCS: 99283; 99284

== ENCOUNTER → 2019-06-28 | Day surgery (SDC) | payer MEDICARE ==
--- NOTE | 2019-07-07 12:33 | PROC ---
DATE OF PROCEDURE: 06/28/2019 SURGEON: Hany Garcia MD PREOPERATIVE DIAGNOSIS: Dislodged gastrostomy tube. POSTOPERATIVE DIAGNOSIS: Dislodged gastrostomy tube with narrowed gastrostomy tract. OPERATIVE PROCEDURE: Replacement of gastrostomy tube with dilation of gastrostomy tract (79707). ANESTHESIA: None. INDICATION FOR PROCEDURE: This 79-year-old senior care patient had a gastrostomy tube become dislodged. A small tube was placed per emergency room last evening. The patient returns for placement of a larger and more functional tube today. The patient's was present and gave consent. DETAILS OF PROCEDURE: In the emergency room, the previous gastrostomy tube was then removed. Using a balloon catheter, the catheter was placed through the gastrostomy tract and inflated to 30-Mohawk size. This was then removed. This then allowed us to place a 24- Mohawk gastrostomy tube without difficulty. The balloon was inflated and a dressing applied. There were no evident complications. Hany Garcia MD /[id number]
--- NOTE | 2019-07-07 13:15 | ER ---
DATE OF SERVICE: 06/28/2019 This is a 79-year-old, who presents to the emergency room with a history of dislodged gastrostomy tube. A small tube was placed per Anesthesia last evening, and with the aid of dilation of the gastrostomy tract, placed a 24-Haitian gastrostomy tube today. Routine care will be continued, and followup is scheduled to be p.r.n. Hany Garcia MD /[id number]
== END ==
LOC: JP.SDS 08:16
PROVIDERS: ATTEND Surgery
DX: K94.23 Gastrostomy malfunction (principal); G30.9 Alzheimer's disease, unspecified; F02.80 Dementia in other diseases classified elsewhere, unspecified severity, without behavioral disturbance, psychotic disturbance, mood disturbance, and anxiety